=== PATIENT | female | born 2000 | race Two or more races ===

== ENCOUNTER 2020-02-15 19:30 | Emergency (ER) | payer MEDICAID, SELFPAY ==
[~2020-02-15] VITALS: Ht 152.4 cm; Wt 35.5 kg
--- NOTE | 2020-02-15 19:45 | NUR ---
PT REPORTS HAVING A MISSED AB 3 WEEKS AGO, C/O ABD CRAMPING N/V, AND CHILLS WORSE TODAY. PER PT SHE HAD SMALL AMOUNT OF BLEEDING 2 WEEKS AGO. PROVIDER AT BEDSIDE FOR EVAL.
[2020-02-15] MEDS ORDERED: ONDANSETRON ODT 4 MG ONE (19:55)
[2020-02-15] MEDS ORDERED: KETOROLAC 30 MG/1 ML ONE (19:55)
[2020-02-15] MEDS ORDERED: ONDANSETRON ODT 4 MG PO ONE (20:00)
[2020-02-15] MEDS ORDERED: KETOROLAC 30 MG/1 ML IM ONE (20:00)
--- NOTE | 2020-02-15 20:04 | NUR ---
PT MEDICATED PER OCT. URINE SAMPLE COLLECTED AND SENT.
[2020-02-15 20:25] LABS: BASOPHILS # (AUTO) 0.02 x10^3/uL (0-0.3); BASOPHILS % (AUTO) 0 % (0-1); EOSINOPHILS # (AUTO) 0.06 x10^3/uL (0-0.8); EOSINOPHILS % (AUTO) 1 % (1-7); LYMPHOCYTES # (AUTO) 2.75 x10^3/uL (1-6.1); LYMPHOCYTES % (AUTO) 37 % (22-44); MD NO; MEAN CORPUSCULAR HEMOGLOBIN 31.1 pg (27.0-34.8); MEAN CORPUSCULAR VOLUME 91.5 fL (80-100); MEAN PLATELET VOLUME 9.4 fL (7.4-10.4); MONOCYTES # (AUTO) 0.67 x10^3/uL (0-1.4); MONOCYTES % (AUTO) 9 % (2-9); NEUTROPHILS % (AUTO) 53 % (42-75); PLATELET COUNT 223 x10^3/uL (130-400); RED BLOOD COUNT 4.77 x10^6/uL (3.82-5.3); RED CELL DISTRIBUTION WIDTH 14.5 % (9.6-15.2)
[2020-02-15 20:34] LABS: ALBUMIN 4.1 g/dL (3.4-5.0); ANION GAP 7 mmol/L (5-15); CALCIUM 8.9 mg/dL (8.5-10.1); CHLORIDE 107 mmol/L (98-107)
[2020-02-15 20:37] LABS: MICROSCOPIC NOT IND
--- NOTE | 2020-02-15 20:39 | NUR ---
PT IN ULTRASOUND.
[2020-02-15 20:52] LABS: CREATININE 0.64 mg/dL (0.55-1.02)
[2020-02-15 21:41] VITALS: BP 103/68
== END 2020-02-15 22:00 | disposition home or self-care (01) ==
LOC: ED 20:00
DX: O03.4 Incomplete spontaneous abortion without complication (principal); O02.1 Missed abortion; Z3A.09 9 weeks gestation of pregnancy
CPT/HCPCS: 36415; 76830; 80048; 81003; 82040; 84702; 85025; 96372; 99284; J1885; Q0162

== ENCOUNTER 2020-03-12 00:27 | Day surgery (SDC) | payer OTHER ==
[~2020-03-12] VITALS: Ht 152.4 cm; Wt 48.1 kg
--- NOTE | 2020-03-12 00:56 | NUR ---
PT URINE SENT TO LAB
[2020-03-12 01:08] LABS: BASOPHILS # (AUTO) 0.04 x10^3/uL (0-0.3); BASOPHILS % (AUTO) 0 % (0-1); EOSINOPHILS # (AUTO) 0.08 x10^3/uL (0-0.8); EOSINOPHILS % (AUTO) 1 % (1-7); LYMPHOCYTES # (AUTO) 1.44 x10^3/uL (1-6.1); LYMPHOCYTES % (AUTO) 11 % (22-44); MD NO; MEAN CORPUSCULAR HEMOGLOBIN 31.4 pg (27.0-34.8); MEAN CORPUSCULAR VOLUME 92.4 fL (80-100); MEAN PLATELET VOLUME 8.9 fL (7.4-10.4); MONOCYTES % (AUTO) 6 % (2-9); NEUTROPHILS # (AUTO) 10.53 x10^3/uL (1.8-8.0); NEUTROPHILS % (AUTO) 82 % (42-75); PLATELET COUNT 201 x10^3/uL (130-400); RED CELL DISTRIBUTION WIDTH 15.2 % (9.6-15.2)
[2020-03-12 01:11] LABS: HCG UR SG 1.025 (1.003-1.030); MICROSCOPIC INDICATED
[2020-03-12 01:17] LABS: ALANINE AMINOTRANSFERASE 17 U/L (12-78); ALBUMIN 4.3 g/dL (3.4-5.0); ANION GAP 6 mmol/L (5-15); CALCIUM 8.8 mg/dL (8.5-10.1); CHLORIDE 110 mmol/L (98-107); CREATININE 0.83 mg/dL (0.55-1.02)
[2020-03-12 01:20] LABS: ALKALINE PHOSPHATASE 95 U/L (45-117); BILIRUBIN,TOTAL 1.1 mg/dL (0.2-1.0); TOTAL PROTEIN 7.5 g/dL (6.4-8.2)
[2020-03-12] MEDS ORDERED: ONDANSETRON 2MG/ML, 2ML IVPush ONE (01:30)
[2020-03-12] MEDS ORDERED: MORPHINE SULFATE 4 MG/ML, 1ML IVPush PRN ×3 (01:30→12:30)
[2020-03-12] MEDS ORDERED: MORPHINE SULFATE 4 MG/ML, 1ML ONE (01:43)
[2020-03-12] MEDS ORDERED: ONDANSETRON 2MG/ML, 2ML ONE ×2 (01:43→09:28)
[2020-03-12] MEDS ORDERED: DIPHENHYDRAMINE 50 MG/ML, 1ML ONE (02:19)
[2020-03-12] MEDS ORDERED: OMNIPAQUE 350 MG/ML, 100ML BOTTLE ONE (02:21)
--- NOTE | 2020-03-12 02:22 | NUR ---
BREAK RN: PATIENT CAME BACK FROM CT. PATIENT STATED THAT SHE FELT IF HER THROAT WAS ITCHY AND HER EYES WERE WATERY/ITCHY. PATIENT DENIES ANY DIFFICULTY OF BREATHING OR SOB. PATIENT'S VITAL SIGNS ARE STABLE. PATIENT GIVEN THE OPTION OF IV BENADRYL, PATIENT DENIED STATING THAT SHE FELT IF THE SYMPTOMS WERE SUBSIDING.
[2020-03-12] MEDS ORDERED: DIPHENHYDRAMINE 50 MG/ML, 1ML IVPush ONE (02:30)
[2020-03-12] MEDS ORDERED: SODIUM CHLORIDE 0.9% 1,000 ML IV ONE (02:59)
[2020-03-12] MEDS ORDERED: CEFTRIAXONE PMX 1GM/50ML 50 ML IV ONE (03:00)
[2020-03-12] MEDS ORDERED: ONDANSETRON 2MG/ML, 2ML IVPush PRN ×2 (03:00→12:30)
[2020-03-12] MEDS ORDERED: CEFTRIAXONE PMX 1GM/50ML 50 ML ONE (03:05)
--- NOTE | 2020-03-12 04:59 | NUR ---
PT RESTING IN BED WITH FRIEND AT PT SIDE. PT DENIED AN WANTS OR NEEDS AT THIS TIME. [employer] WILL CONTINUE TO MONITOR.
[2020-03-12 06:31] VITALS: BP 114/70
[2020-03-12] MEDS ORDERED: BUPIVACAINE/PF-EPI 0.5% 1:200K ONE (08:03)
[2020-03-12] MEDS ORDERED: MIDAZOLAM 1 MG/ML, 2ML ONE (08:53)
[2020-03-12] MEDS ORDERED: FENTANYL PF 100 MCG/2ML ONE (08:53)
[2020-03-12] MEDS ORDERED: SUGAMMADEX 200 MG/2 ML IVPush ONE (08:56)
[2020-03-12] MEDS ORDERED: CEFOTETAN PMX ONE (08:56)
[2020-03-12] MEDS ORDERED: KETOROLAC 30 MG/1 ML ONE (08:56)
[2020-03-12] MEDS ORDERED: FENTANYL PF 100 MCG/2ML IV PRN (09:00)
[2020-03-12] MEDS ORDERED: OXYcodone 5 MG/5 ML ORAL.SOL UDC PO PRN (09:00)
[2020-03-12] MEDS ORDERED: LORazepam 2 MG/ML, 1ML IVPush PRN (09:00)
[2020-03-12] MEDS ORDERED: MEPERIDINE/PF 25MG/0.5ML IVPush PRN (09:00)
[2020-03-12] MEDS ORDERED: ACETAMINOPHEN 325 MG TABLET PO PRN (09:00)
[2020-03-12] MEDS ORDERED: HYDROmorphone 1 MG/ML, 1ML INJ IVPush PRN (09:00)
[2020-03-12] MEDS ORDERED: PROMETHAZINE 25 MG/ML, 1ML IVPush PRN (09:00)
[2020-03-12] MEDS ORDERED: PROPOFOL 10 MG/ML, 20ML ONE (09:28)
[2020-03-12] MEDS ORDERED: NEOSTIGMINE 1 MG/ML, 10ML ONE (09:28)
[2020-03-12] MEDS ORDERED: DEXAMETHASONE 4 MG/ML, 1ML ONE (09:28)
[2020-03-12] MEDS ORDERED: GLYCOPYRROLATE 0.2MG/1ML, 5ML ONE (09:28)
[2020-03-12] MEDS ORDERED: MEPERIDINE/PF 50 MG/ML ONE (09:28)
[2020-03-12] MEDS ORDERED: ROCURONIUM 10MG/ML,5ML ONE (09:28)
[2020-03-12] MEDS ORDERED: SUCCINYLCHOLINE 20 MG/ML, 10ML ONE (09:28)
[2020-03-12] MEDS ORDERED: HYDROcodone/APAP 5/325 TABLET PO PRN (12:30)
[2020-03-12] MEDS ORDERED: HYDR-3240 PO ×2 (13:29)
== END 2020-03-12 13:45 | disposition home or self-care (01) ==
LOC: ED 00:57 → EDIP 03:24 → UNDOADMIN 03:24 → EDIP 06:00 → 4NE 06:00 → ED 09:30 → EDSTATUS 12:42 → ED 13:45 → UNDODISIN 13:50
PROVIDERS: ATTEND Student in an Organized Health Care Education/Training Program
DX: K35.80 Unspecified acute appendicitis (principal); Z11.59 Encounter for screening for other viral diseases
CPT/HCPCS: 36415; 44970; 74177; 76830; 80053; 81001; 81025; 83690; 85025; 87086; 87635; 88304; 96374; 96375; 99285; J0330; J0696; J1100; J1885; J2175; J2250; J2270; J2405; J2704; J2710; J3010; J3490; J7030; Q9967; G0378

== ENCOUNTER 2020-03-16 17:14 | Emergency (ER) | payer SELFPAY ==
[~2020-03-16] VITALS: Ht 152.4 cm; Wt 45.0 kg
[~2020-03-16 17:14] MED LIST: HYDR-3240 PO
[2020-03-16 18:40] VITALS: BP 113/67
== END 2020-03-16 18:43 | disposition home or self-care (01) ==
LOC: ED 18:18
DX: Z48.01 Encounter for change or removal of surgical wound dressing (principal); Z90.89 Acquired absence of other organs
CPT/HCPCS: 99282

== ENCOUNTER 2020-08-14 11:09 | Emergency (ER) | payer SELFPAY ==
[~2020-08-14] VITALS: Ht 152.4 cm; Wt 45.9 kg
[2020-08-14 11:13] VITALS: BP 138/88
[2020-08-14] MEDS ORDERED: BIRTH CONTROL PO (12:04)
--- NOTE | 2020-08-14 12:05 | NUR ---
PT C/O BLEEDING WHEN VOIDING SINCE THIS AM AND HAS BEEN ON MENSES SINCE EARLIER THIS WEEK. PT REPORTS MILD CRAMPING NOW. LABS BEING DRAWN AND PATIENT AWARE OF NEED FOR UA.
[2020-08-14 12:20] LABS: BASOPHILS % (AUTO) 0 % (0-1); EOSINOPHILS % (AUTO) 0 % (1-7); LYMPHOCYTES % (AUTO) 44 % (22-44); MEAN CORPUSCULAR HEMOGLOBIN 30.8 pg (27.0-34.8); MEAN CORPUSCULAR HGB CONC 34.4 g/dL (32.4-35.8); MONOCYTES % (AUTO) 9 % (2-9); NEUTROPHILS % (AUTO) 47 % (42-75); PLATELET COUNT 238 x10^3/uL (130-400); RED CELL DISTRIBUTION WIDTH 15.3 % (9.6-15.2)
--- NOTE | 2020-08-14 12:20 | NUR ---
REPORT TO NANCY Dickens RN.
[2020-08-14 12:22] LABS: MD NO
[2020-08-14 12:33] LABS: ALBUMIN 4.3 g/dL (3.4-5.0); ANION GAP 5 mmol/L (5-15); CALCIUM 9.2 mg/dL (8.5-10.1); CHLORIDE 108 mmol/L (98-107); CREATININE 0.76 mg/dL (0.55-1.02)
[2020-08-14 12:34] LABS: MICROSCOPIC AUTO
== END 2020-08-14 13:43 | disposition home or self-care (01) ==
LOC: ED 12:27
DX: N93.8 Other specified abnormal uterine and vaginal bleeding (principal); Z90.89 Acquired absence of other organs
CPT/HCPCS: 36415; 80048; 81001; 82040; 84703; 85025; 99283

== ENCOUNTER 2021-02-16 13:24 | Emergency (ER) | payer SELFPAY ==
[~2021-02-16] VITALS: Ht 154.9 cm; Wt 45.0 kg
[~2021-02-16 13:24] MED LIST changes: +BIRTH CONTROL PO; +HYDR-2214 PO; -HYDR-3240 PO
--- NOTE | 2021-02-16 13:52 | NUR ---
STUDENT FINANCE SPECIALIST: PT TO ROOM FROM ANDREW NELSON
--- NOTE | 2021-02-16 13:59 | NUR ---
ASSUMED CARE OF PT. LAST NIGHT HAD SPOTTING, AND THEN AGAIN THIS MORNING. PT IN GOWN, BACK FROM RESTROOM, STEADY GAIT. NADN, CALL LIGHT W/IN REACH.
--- NOTE | 2021-02-16 14:36 | NUR ---
PT WALKED TO BATHROOM AND BACK AND PROVIDED SAMPLE WHICHI WAS WALKED DOWN. PT VSS, DIANE. CALL LIGHT W/IN REACH.
[2021-02-16 14:51] LABS: BASOPHILS % (AUTO) 1 % (0-1); EOSINOPHILS % (AUTO) 0 % (1-7); LYMPHOCYTES % (AUTO) 26 % (22-44); MEAN CORPUSCULAR HEMOGLOBIN 31.8 pg (27.0-34.8); MEAN CORPUSCULAR HGB CONC 34.9 g/dL (32.4-35.8); MEAN PLATELET VOLUME 8.9 fL (7.4-10.4); MONOCYTES % (AUTO) 8 % (2-9); NEUTROPHILS % (AUTO) 65 % (42-75); PLATELET COUNT 228 x10^3/uL (130-400); RED BLOOD COUNT 4.97 x10^6/uL (3.82-5.3); RED CELL DISTRIBUTION WIDTH 14.3 % (9.6-15.2)
[2021-02-16 14:57] LABS: MICROSCOPIC INDICATED
[2021-02-16 15:02] LABS: ALANINE AMINOTRANSFERASE 20 U/L (12-78); ALBUMIN 4.2 g/dL (3.4-5.0); ANION GAP 4 mmol/L (5-15); CALCIUM 8.9 mg/dL (8.5-10.1); CHLORIDE 105 mmol/L (98-107); CREATININE 0.65 mg/dL (0.55-1.02)
[2021-02-16 15:19] LABS: ALKALINE PHOSPHATASE 75 U/L (45-117); BILIRUBIN,TOTAL 0.6 mg/dL (0.2-1.0); TOTAL PROTEIN 7.5 g/dL (6.4-8.2)
[2021-02-16 15:38] VITALS: BP 104/65
--- NOTE | 2021-02-16 15:38 | NUR ---
PT RESTING ON GURNEY, REQUEST PAD. VSS, NADN, CALL LIGHT W/IN REACH.
== END 2021-02-16 16:16 | disposition home or self-care (01) ==
LOC: ED 15:30
DX: O20.0 Threatened abortion (principal); Z3A.01 Less than 8 weeks gestation of pregnancy
CPT/HCPCS: 36415; 76801; 80053; 81001; 84702; 85025; 86901; 99284

== ENCOUNTER 2021-02-18 12:12 | Emergency (ER) | payer OTHER ==
[~2021-02-18] VITALS: Ht 152.4 cm; Wt 45.2 kg
[2021-02-18 12:20] VITALS: BP 109/80
--- NOTE | 2021-02-18 14:18 | NUR ---
DC INSTRUCTIONS REVIEWED
== END 2021-02-18 14:20 | disposition home or self-care (01) ==
LOC: ED 12:33
DX: O03.9 Complete or unspecified spontaneous abortion without complication (principal)
CPT/HCPCS: 36415; 84702; 99283